=== PATIENT | male | born 1950 | race Caucasian/White ===

== ENCOUNTER 2017-10-19 08:45 | Emergency (ER) | payer MEDICARE ==
[~2017-10-19] VITALS: Ht 185.4 cm; Wt 86.2 kg
[2017-10-19] MEDS ORDERED: KETOROLAC TROMETHAMINE 30 MG/ML VIAL IV STA (09:06)
[2017-10-19 09:10] LABS: BASOPHILS % 0.1 % (0.0-1.0); EOSINOPHILS # (AUTO) 0.1 (0.0-0.4); EOSINOPHILS % 0.4 % (0.0-6.0); HEMATOCRIT 36.8 % (38.2-49.6); HEMOGLOBIN 13.3 g/dL (14.0-18.0); LYMPHOCYTES % 8.2 % (18.0-39.1); MEAN CORPUSCULAR HEMOGLOBIN 31.3 pg (28-32); MEAN CORPUSCULAR HGB CONC 36.1 g/dL (31-35); MEAN CORPUSCULAR VOLUME 86.6 fL (81-99); MONOCYTES # (AUTO) 1.2 (0.2-0.8); MONOCYTES % 9.7 % (4.4-11.3); NEUTROPHILS # (AUTO) 9.8 (2.1-6.9); NEUTROPHILS % 81.3 % (38.7-80.0); PLATELET COUNT 277 x10e3/uL (140-360); RED BLOOD COUNT 4.25 x10e6/uL (4.3-5.7); RED CELL DISTRIBUTION WIDTH 12.2 % (11.7-14.4)
[2017-10-19] MEDS ORDERED: SODIUM CHLORIDE 0.9% 1000ML 1,000 ML IV SCH (09:15)
[2017-10-19 09:30] LABS: B-TYPE NATRIURETIC PEPTIDE2 41.2 pg/mL (0-100)
[2017-10-19 09:32] LABS: INR 1.23; PROTHROMBIN TIME 14.6 seconds (11.9-14.5)
[2017-10-19 09:33] LABS: PARTIAL THROMBOPLASTIN TIME 31.7 seconds (23.8-35.5)
[2017-10-19 09:42] LABS: ALANINE AMINOTRANSFERASE 28 IU/L (0-55); ALBUMIN 3.5 g/dL (3.5-5.0); ALBUMIN/GLOBULIN RATIO 0.9 (0.8-2.0); ALKALINE PHOSPHATASE 89 IU/L (40-150); ANION GAP 15.7 mmol/L (8-16); BLOOD UREA NITROGEN 12 mg/dL (7-26); BUN/CREATININE RATIO 14 (6-25); CALCIUM 9.3 mg/dL (8.4-10.2); CARBON DIOXIDE 22 mmol/L (22-29); CHLORIDE 103 mmol/L (98-107); CREATINE KINASE 145 IU/L (30-200); CREATININE, SERUM 0.86 mg/dL (0.72-1.25); EST GLOMERULAR FILTRATION RATE > 60 ML/MIN (60-); GLUCOSE 113 mg/dL (74-118); POTASSIUM 3.7 mmol/L (3.5-5.1); SODIUM 137 mmol/L (136-145)
[2017-10-19] MEDS ORDERED: CEFTRIAXONE SOD 1 GM VIAL IV ONE (10:15)
--- NOTE | 2017-10-19 10:52 | Diagnostic Imaging Report ---
PROCEDURE: X-RAY CHEST, TWO VIEWS COMPARISON: None. INDICATIONS: COUGH, CHEST PAIN, VOMITING FINDINGS: LUNGS: No consolidations or edema. PLEURA: No effusions or pneumothorax. HEART \T\ MEDIASTINUM: The heart is within normal size-limits. BONES \T\ SOFT TISSUES: No acute findings. CONCLUSION: No acute thoracic abnormality. Keegan White D.O. Dictated by: Keegan White D.O. on 10/19/2017 at 9:36 Electronically approved by: Keegan White D.O. on 10/19/2017 at 9:36
== END 2017-10-19 11:29 | disposition home or self-care (01) ==
LOC: ER 08:45
DX: R06.00 Dyspnea, unspecified (principal); R51 Headache; R05 Cough; J01.00 Acute maxillary sinusitis, unspecified; I10 Essential (primary) hypertension; J45.909 Unspecified asthma, uncomplicated; I25.10 Atherosclerotic heart disease of native coronary artery without angina pectoris; E78.5 Hyperlipidemia, unspecified; Z95.5 Presence of coronary angioplasty implant and graft
CPT/HCPCS: 36415; 71046; 80053; 82550; 82553; 83605; 83880; 84484; 85025; 85610; 85730; 93005; 99284; J0696; J1885; J7030

== ENCOUNTER 2018-02-09 05:45 | Emergency (ER) | payer MEDICARE ==
[~2018-02-09] VITALS: Ht 185.4 cm; Wt 86.2 kg
--- OUTSIDE RECORDS SUMMARY | 2018-02-09 05:47 | XMS REPORT ---
Author Author [facility] Address Unknown Phone Unavailable Care Team Providers Care Resistor Inspector Name Role Phone Isma CORNELIUS Unavailable Unavailable Problems This patient has no known problems. Allergies, Adverse Reactions, Alerts This patient has no known allergies or adverse reactions. Medications This patient has no known medications. Results Test Description Test Time Test Comments Text Results Atomic Results Result Comments CHEST 2 VIEWS 2017-10-19 09:36:00 [facility] [address] [address] Patient Name: NORMA AVELAR MR #: [id number] : 1950 Age/Sex: 67/M Req #: [id number] Adm Physician: Ordered by: CLINTON CORNELIUS MD Report #: [id number] Location: ER Room/Bed: Procedure: [id number] DX/CHEST 2 VIEWS Exam Date: 10/19/17 Exam Time: 0900 REPORT STATUS: Signed PROCEDURE: X-RAY CHEST, TWO VIEWS COMPARISON: None. INDICATIONS: COUGH, CHEST PAIN, VOMITING FINDINGS: LUNGS: No consolidations or edema. PLEURA: No effusions or pneumothorax. HEART T MEDIASTINUM: The heart is within normal size-limits. BONES T SOFT TISSUES: No acute findings. CONCLUSION: No acute thoracic abnormality. Edwin Schneider D.O. Dictated by: Edwin Schneider D.O. on 10/19/2017 at 9:36 Electronically approved by: Edwin Schneider D.O. on 10/19/2017 at 9:36 Dictated By: EDWIN SCHNEIDER DO 5 Transcribed By: XI on 10/19/17935 COPY TO: CLINTON CORNELIUS MD
--- OUTSIDE RECORDS SUMMARY | 2018-02-09 05:48 | XMS REPORT ---
Author Organization Unknown Address [address] [place] [address] Phone [phone] Care Team Providers Care [employer] Police Name Role Phone Tee Moon Unavailable Unavailable Allergies Code Code System Name Reaction Severity Status Onset 465876 RxNorm Bactrim Active 07/15/2015 Medications Name Status Start Date Stop Date Advair Diskus 250 mcg-50 mcg/dose powder for inhalation Completed 07/06/2017 albuterol sulfate 2.5 mg/3 mL (0.083 %) solution for nebulization Inhale 3 mL as needed by nebulization route. Active Not available amoxicillin 500 mg capsule Completed 07/27/2016 amoxicillin 875 mg-potassium clavulanate 125 mg tablet Completed 01/13/2017 Aspir-81 1 tab QD Active Not available atorvastatin 80 mg tablet Active Not available azithromycin 250 mg tablet Completed 11/25/2016 benzonatate 150 mg capsule Completed 10/24/2016 Besivance 0.6 % eye drops,suspension Completed 11/25/2016 Breo Ellipta 200 mcg-25 mcg/dose powder for inhalation Inhale 1 puff every day by inhalation route for 90 days. Active Not available carvedilol 3.125 mg tablet Active Not available Cheratussin AC 10 mg-100 mg/5 mL oral liquid Take 5 mL every 6 hours by oral route as needed for 4 days. Completed 11/25/2016 clopidogrel 75 mg tablet Active Not available Depo-Medrol 80 mg/mL suspension for injection Take 1 mL every day by injection route. Completed 10/24/2016 Durezol 0.05 % eye drops Completed 11/25/2016 fluticasone 50 mcg/actuation nasal spray,suspension Completed 07/06/2017 hydrocodone 5 mg-acetaminophen 325 mg tablet Completed 07/27/2016 hydrocodone-homatropine 5 mg-1.5 mg/5 mL syrup Completed 07/27/2016 Ilevro 0.3 % eye drops,suspension Completed 11/25/2016 indomethacin 50 mg capsule Completed 10/24/2016 ipratropium-albuterol 0.5 mg-3 mg(2.5 mg base)/3 mL nebulization soln Completed 07/06/2017 ondansetron HCl 8 mg tablet Completed 01/13/2017 prednisone 20 mg tablet Completed 07/27/2016 prednisone 50 mg tablet Take 1 tablet by oral route for 5 days. Completed 07/11/2016 promethazine 25 mg/mL injection solution Take 25 mg by injection route. Completed 01/13/2017 Symbicort 160 mcg-4.5 mcg/actuation HFA aerosol inhaler TAKE 2 PUFFS BY MOUTH TWICE A DAY Completed 02/16/2017 Ventolin HFA 90 mcg/actuation aerosol inhaler Inhale 2 puffs every 4 hours by inhalation route as needed for 90 days. Active Not available Problems Name Status Onset Date Source Gastro-esophageal Reflux Disease with Esophagitis Active 09/14/2009 History Disorder of Male Genital Organ Active 09/14/2009 History Shoulder Joint Pain Active 09/14/2009 History Pain in Elbow Active 09/14/2009 History Lateral Epicondylitis Active 09/14/2009 History Malaise and Fatigue Active 09/14/2009 History Testicular Hypofunction Active 03/14/2014 History Pure Hypercholesterolemia Active 03/14/2014 History Ruptured Abdominal Aortic Aneurysm Unknown 07/03/2015 History Asthma Active 07/03/2015 History Acute Exacerbation of Asthma Unknown 07/03/2015 History Hypertensive Heart Disease Active 10/24/2016 History of Repair of Aneurysm of Abdominal Aorta Active 10/24/2016 Post Percutaneous Transluminal Coronary Angioplasty Active 10/24/2016 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 Procedures Date Name Performed by 01/07/2016 Angioplasty Information not available 04/03/2014 Shoulder Surgery Procedure Notes: right rotator cuff repair Information not available 05/10/2016 XR, Foot, 3 or More View Information not available 10/24/2016 Electrocardiogram Information not available 10/24/2016 XR, Chest, 2 View Information not available 01/13/2017 US, Scrotum [employer] [facility] [address] [place] [address] (Work Place) Lab Results Date Name Specimen Result Interpretation Description Value Range Status Address 10/24/2016 CBC W/ Auto Diff Wbc 8.24 x10*3/L 4.23-9.07 x10*3/L [facility] Laboratory: [address] [place] Rbc 4.78 10*12/L 4.63-6.08 10*12/L Final [facility] [address] [facility] [facility] Hemoglobin 15.00 g/dL 13.70-17.50 g/dL Final [facility] Laboratory: [address] [place] Hematocrit 44.2 % 40.1-51.0 % Final [facility] [address] [facility] Mcv 92.5 fL 80.0-100.0 fL Final [facility] [address] [facility] Mch 31.4 pg 25.7-32.2 pg Final [facility]: [address] [facility] [facility] Mchc 33.9 g/dL 32.3-36.5 g/dL Final [facility] [address] [facility] RDW-SD 42.2 fL 35.1-43.9 fL Final [facility] [address] [facility] [facility] Platelet Count 260.0 k/uL 163.0-337.0 k/uL Final [facility] [address] [facility] High Mpv 11.9 fL 7.5-11.5 fL Final [facility] [address] [facility] Neut% 67.3 % 34.0-67.9 % Final [facility]: [address] [facility] Low Lymph% 18.3 % 21.8-53.1 % Final [facility] [address] [facility] Mon% 9.3 % 5.3-12.2 % Final [facility] [address] [facility] Eos% 4.9 % 0.8-7.0 % Final [facility]: [address] [facility] Baso% 0.2 % 0.2-1.2 % Final [facility] [address] [facility] [facility] High Neut# 5.5 x10*3/L 1.8-5.4 x10*3/L Final [facility] [address] [facility] [facility] Lymph# 1.5 x10*3/L 1.3-3.6 x10*3/L Final [facility] Laboratory: [address] [facility] [place] Mon# 0.8 x10*3/L 0.3-0.8 x10*3/L Final [facility] Laboratory: [address] [place] Eos# 0.40 x10*3/L 0.04-0.54 x10*3/L Final [facility] Laboratory: [address] [place] [address] [place] Baso# 0.02 x10*3/L 0.01-0.08 x10*3/L Final [facility]: [address] [facility] 10/24/2016 CMP, Serum or Plasma Alt 26 U/L 0-55 U/L Final [facility] Laboratory: [address] Ast 23 U/L 5-34 U/L Final [facility] Laboratory: [address] Bun 10.3 mg/dL 8.4-25.7 mg/dL Final [facility] Laboratory: [address] Alk Phos 77 unit/L 40-150 unit/L Final [facility] Laboratory: [address] Glucose 96 mg/dL 70-99 mg/dL Final [facility] Laboratory: [address] Albumin 4.1 g/dL 3.5-5.0 g/dL Final [facility] Laboratory: [address] Creatinine 0.86 mg/dL 0.72-1.25 mg/dL Final [facility] Laboratory: [address] eGFR Non- >60 mL/min/1.73m2 >60 mL/min/1.73m2 Final [facility] Laboratory: [address] Total Bilirubin 0.7 mg/dL 0.2-1.2 mg/dL Final [facility] Laboratory: [address] eGFR - >60 mL/min/1.73m2 >60 mL/min/1.73m2 Final [facility] Laboratory: [address] Sodium 143 mEq/L 136-145 mEq/L Final [facility] Laboratory: [address] [place] [address], [place] Potassium 4.6 mEq/L 3.5-5.1 mEq/L Final [facility] Laboratory: [address] Chloride 106 mmol/L 98-107 mmol/L Final [facility] Laboratory: [address] [place] [address], [place] Total Protein 7.0 g/dL 6.4-8.3 g/dL Final [facility] Laboratory: [address] Calcium 9.7 mg/dL 8.8-10.0 mg/dL Final [facility] Laboratory: [address] Co2 24.3 mmol/L 23.0-31.0 mmol/L Final [facility] Laboratory: [address] Anion Gap 13 calc Final [facility] Laboratory: [address] [place] [address], [place] 10/24/2016 Lipid Panel, Serum Hdl 47 mg/dL 40-60 mg/dL Final [facility] Laboratory: [address] Triglyceride 114 mg/dL 0-149 mg/dL Final [facility] Laboratory: [address] VLDL Calc. 23 mg/dL Final [facility] Laboratory: [address] cholesterol/HDL Ratio 3 mg/dL Final [facility] Laboratory: [address] non-HDL Cholesterol Calc. 78 mg/dL 0-160 mg/dL Final [facility] Laboratory: [address] Cholesterol 125 mg/dL 0-199 mg/dL Final [facility] Laboratory: [address] LDL Calc. 55 mg/dL 0-130 mg/dL Final [facility] Laboratory: [address] [employer] [address] [facility] [place] 05/13/2016 CMP, Serum or Plasma Glucose, Serum 77 mg/dL 65-99 mg/dL Final [facility]: [address] Bun 12 mg/dL 8-27 mg/dL Final [facility]: [address] Creatinine, Serum 0.78 mg/dL 0.76-1.27 mg/dL Final [facility]: [address] eGFR If Nonafricn AM 95 mL/min/1.73 >59 mL/min/1.73 Final [facility]: [address] eGFR If Africn AM 110 mL/min/1.73 >59 mL/min/1.73 Final [facility]: [address] BUN/creatinine Ratio 15 10-22 Final [facility]: [address] Sodium, Serum 143 mmol/L 134-144 mmol/L Final [facility]: [address] Potassium, Serum 4.5 mmol/L 3.5-5.2 mmol/L Final [facility]: [address] Chloride, Serum 102 mmol/L 96-106 mmol/L Final [facility]: [address] Carbon Dioxide, Total 28 mmol/L 18-29 mmol/L Final [facility]: [address] Calcium, Serum 9.1 mg/dL 8.6-10.2 mg/dL Final [facility]: [address] Protein, Total, Serum 6.6 g/dL 6.0-8.5 g/dL Final [facility]: [address] Albumin, Serum 4.4 g/dL 3.6-4.8 g/dL Final [facility]: [address] Globulin, Total 2.2 g/dL 1.5-4.5 g/dL Final [facility]: [address] A/g Ratio 2.0 1.1-2.5 Final [facility]: [address] Bilirubin, Total 0.4 mg/dL 0.0-1.2 mg/dL Final [facility]: [address] Alkaline Phosphatase, S 97 IU/L 39-117 IU/L Final [facility]: [address] Ast (Sgot) 19 IU/L 0-40 IU/L Final [facility]: [address] Alt (Sgpt) 19 IU/L 0-44 IU/L Final [facility]: [address] 05/13/2016 Uric Acid, Serum or Plasma Uric Acid, Serum 5.7 mg/dL 3.7-8.6 mg/dL Final [facility]: [address], [place] Pulse Oximetry Pulse Ox [facility] [address] Past Encounters 07/06/2017 Asthma; Hypertensive Heart Disease JOE Marcos: [address] [place] [phone], Ph. 02/14/2017 Asthma; Hydrocele of Testis; Hypertensive Heart Disease; Post Percutaneous Transluminal Coronary Angioplasty Tee Moon MD: [address] [place] [phone], Ph. 01/13/2017 Swelling of Testicle Marcial Sanchez MD: [address] [place] [phone], Ph. 11/25/2016 Acute Bronchitis; Exacerbation of Asthma; Nausea Marcial Sanchez MD: [address] [place] [phone], Ph. 11/14/2016 Cough; Asthma; Acute Bronchitis BRITTNY Cao: [address] [place] [phone], Ph. 10/24/2016 Pre-surgery Evaluation; Hypertensive Heart Disease; Post Percutaneous Transluminal Coronary Angioplasty; Pure Hypercholesterolemia; Asthma Tee Moon MD: [address] [place] [phone], Ph. 07/27/2016 Acute Upper Respiratory Infection; Asthma JOE Aranda: [address] [place] [phone], Ph. 07/18/2016 Wheezing; Cough; Nausea BRITTNY Cao: [address] [place] [phone], Ph. 07/11/2016 Acute Upper Respiratory Infection BRITTNY Cao: [address] [place] [phone], Ph. 05/13/2016 Gouty Arthropathy JOE Aranda: [address] [facility], [facility] [address], [place] [address], Ph. 05/10/2016 Pain in Right Foot JOE Aranda: [address] [facility], [address], [place] [address], Ph. Social History Smoking Status Never Smoker Vaccine List Vaccine Type influenza, high dose seasonal 01/13/20170.5 mL influenza, seasonal, injectable 03/14/2014 Pneumococcal Conjugate, unspecified formulation 04/03/2012 Tdap 09/01/2009 Plan of Care Patient Instructions Schedule for AWV Increase PO fluids. Complete all antibiotics as prescribed. Call or RTC for worsening of symptoms or no improvement in 2-3 days. Increase PO fluids. Complete all antibiotics as prescribed. Call or RTC for worsening of symptoms or no improvement in 2-3 days. Reminders Provider Appointments None recorded. Lab None recorded. Referral None recorded. Procedures None recorded. Surgeries None recorded. Imaging None recorded. Vitals 07/06/2017 01:30PM Est Patient Height Weight BMI Blood Pressure 6 ft 0.3 in 181.9 lbs 24.5 kg/m2 (1) 149/83 mm[Hg] (2) 132/78 mm[Hg] 02/14/2017 02:45PM Est Patient Height Weight BMI Blood Pressure 6 ft 0.3 in 179 lbs 24.1 kg/m2 129/80 mm[Hg] 01/13/2017 08:30AM RIVETER/EST CPX Height Weight BMI Blood Pressure 6 ft 0.3 in 183 lbs 24.6 kg/m2 127/76 mm[Hg] 11/25/2016 09:15AM Est Patient Height Weight BMI Blood Pressure 6 ft 0.3 in 186 lbs 25 kg/m2 136/78 mm[Hg] 11/14/2016 10:15AM Work In Same Day Height Weight BMI Blood Pressure 6 ft 0.3 in 183 lbs 24.6 kg/m2 144/82 mm[Hg] 10/24/2016 02:30PM Est Patient Height Weight BMI Blood Pressure 6 ft 0.3 in 185.2 lbs 24.9 kg/m2 144/83 mm[Hg] 07/27/2016 01:45PM Est Patient Height Weight BMI Blood Pressure 6 ft 0.3 in 182.2 lbs 24.5 kg/m2 134/81 mm[Hg] 07/18/2016 10:30AM Est Patient Height Weight BMI Blood Pressure 6 ft 0.3 in 179.4 lbs 24.1 kg/m2 134/89 mm[Hg] 07/11/2016 01:45PM Work In Same Day Height Weight BMI Blood Pressure 6 ft 0.3 in 181.4 lbs 24.4 kg/m2 134/86 mm[Hg] 05/13/2016 09:15AM Est Patient Height Weight BMI Blood Pressure 6 ft 0.3 in 178 lbs 23.9 kg/m2 128/72 mm[Hg] 05/10/2016 10:15AM Work In Same Day Height Weight BMI Blood Pressure 6 ft 0.3 in 179 lbs 24.1 kg/m2 138/72 mm[Hg] 07/15/2015 Height Weight Blood Pressure 6 ft 0.3 in 184.6 lbs 134/75 mm[Hg] 07/15/2015 BMI 24.83 kg/m2 07/03/2015 Height Weight BMI Blood Pressure 6 ft 0.3 in 189 lbs 25.42 kg/m2 145/78 mm[Hg] 05/30/2014 Height Weight BMI Blood Pressure 6 ft 0.3 in 193 lbs 25.96 kg/m2 140/80 mm[Hg] 03/31/2014 Height Weight BMI Blood Pressure 6 ft 0.3 in 183 lbs 24.61 kg/m2 115/70 mm[Hg] 03/14/2014 Height Weight BMI Blood Pressure 6 ft 0.3 in 186.6 lbs 25.10 kg/m2 140/70 mm[Hg] 03/14/2013 Height Weight 6 ft 0.3 in 188.8 lbs 12/06/2012 Height Weight 6 ft 192.2 lbs 09/13/2012 Height Weight 6 ft 186.2 lbs 07/25/2012 Height Weight 6 ft 186.4 lbs 02/17/2012 Height Weight 6 ft 184.4 lbs 02/08/2012 Height Weight 6 ft 185.6 lbs 11/01/2011 Height Weight 6 ft 186 lbs 10/26/2011 Height Weight 6 ft 185.6 lbs 06/06/2011 Height Weight 6 ft 189 lbs 10/22/2009 Height Weight 6 ft 182.8 lbs 10/02/2009 Weight 188 lbs 09/23/2009 Height Weight 6 ft 0.5 in 185.8 lbs 09/14/2009 Height Weight 6 ft 0.5 in 186.4 lbs 01/22/2009 Weight 191 lbs 01/08/2009 Weight 187 lbs 09/25/2008 Height Weight 6 ft 0.5 in 189 lbs 10/12/2007 Weight 189.2 lbs 07/20/2006 Height Weight 6 ft 189.5 lbs 07/06/2006 Height Weight 6 ft 189.2 lbs 06/27/2006 Height Weight 6 ft 186.3 lbs 06/23/2006 Height Weight 6 ft 190.1 lbs 09/30/2005 Height Weight 6 ft 188 lbs 08/09/2005 Height Weight 6 ft 191 lbs 05/13/2005 Height Weight 6 ft 187 lbs 11/02/2004 Height Weight 6 ft 188 lbs 10/13/2004 Weight 188 lbs 10/13/2004 Height 6 ft
[2018-02-09] MEDS ORDERED: ACETAMINOPHEN 1000 MG/100 ML IV STA (05:57)
[2018-02-09] MEDS ORDERED: SODIUM CHLORIDE 0.9% 1000ML 1,000 ML IV ONE (06:00)
[2018-02-09 06:16] LABS: BASOPHILS % 0.3 % (0.0-1.0); EOSINOPHILS % 0.2 % (0.0-6.0); HEMATOCRIT 36.5 % (38.2-49.6); HEMOGLOBIN 12.6 g/dL (14.0-18.0); LYMPHOCYTES # (AUTO) 1.5 (1.0-3.2); LYMPHOCYTES % 14.3 % (18.0-39.1); MEAN CORPUSCULAR HEMOGLOBIN 30.6 pg (28-32); MEAN CORPUSCULAR HGB CONC 34.5 g/dL (31-35); MEAN CORPUSCULAR VOLUME 88.6 fL (81-99); NEUTROPHILS # (AUTO) 7.7 (2.1-6.9); NEUTROPHILS % 74.3 % (38.7-80.0); PLATELET COUNT 374 x10e3/uL (140-360); RED BLOOD COUNT 4.12 x10e6/uL (4.3-5.7); RED CELL DISTRIBUTION WIDTH 12.3 % (11.7-14.4)
[2018-02-09 06:23] LABS: CLARITY,URINE CLEAR (CLEAR); COLOR,URINE YELLOW (YELLOW); KETONES,URINE NEGATIVE (NEGATIVE); LEUKOCYTE ESTERASE ,URINE NEGATIVE (NEGATIVE); NITRITE,URINE NEGATIVE (NEGATIVE); PROTEIN,URINE DIPSTICK 1+ (NEGATIVE)
[2018-02-09 06:24] LABS: BILIRUBIN,URINE NEGATIVE (NEGATIVE); URINE UROBILINOGEN 0.2 mg/dL (0.2 - 1)
[2018-02-09 06:27] LABS: ALANINE AMINOTRANSFERASE 43 IU/L (0-55); ALBUMIN 3.1 g/dL (3.5-5.0); ALBUMIN/GLOBULIN RATIO 0.7 (0.8-2.0); ALKALINE PHOSPHATASE 79 IU/L (40-150); BLOOD UREA NITROGEN 10 mg/dL (7-26); BUN/CREATININE RATIO 11 (6-25); CALCIUM 9.4 mg/dL (8.4-10.2); CARBON DIOXIDE 23 mmol/L (22-29); CHLORIDE 100 mmol/L (98-107); CREATINE KINASE 101 IU/L (30-200); CREATININE, SERUM 0.88 mg/dL (0.72-1.25); EST GLOMERULAR FILTRATION RATE > 60 ML/MIN (60-); GLUCOSE 112 mg/dL (74-118); SODIUM 137 mmol/L (136-145)
[2018-02-09 06:35] LABS: STREPTOCOCCUS GRP A ANTIGEN POSITIVE (NEGATIVE)
[2018-02-09 06:36] LABS: BACTERIA,URINE FEW /HPF; EPITHELIAL CELLS,URINE RARE /LPF; MUCUS,URINE FEW (RARE); RBC,URINE 0-5 /HPF (0-5)
[2018-02-09 06:37] LABS: AMORPHOUS SEDIMENT,URINE FEW (FEW)
[2018-02-09 06:48] LABS: INFLUENZAE A&B ANTIGEN (RAPID) POSITIVE FLU A&B (NEGATIVE)
[2018-02-09 06:55] VITALS: BP 139/78
[2018-02-09] MEDS ORDERED: AUGMENTIN 875-1 EACH PO (06:55)
[2018-02-09] MEDS ORDERED: ZOFRAN ODT4 MG SL (06:59)
--- NOTE | 2018-02-09 07:45 | Diagnostic Imaging Report ---
EXAM: CHEST 2 VIEWS, PA and lateral DATE: 02/09/2018 5:51 AM Time stamp on exam: 6:36 AM INDICATION: Fever and cough COMPARISON: 10/19/2017 chest x-ray FINDINGS: LINES/TUBES: None LUNGS: No consolidations or edema. Biapical pleural thickening is stable. PLEURA: No effusions or pneumothorax. HEART AND MEDIASTINUM: Normal size and contour. BONES AND SOFT TISSUES: No acute findings. IMPRESSION: No acute thoracic abnormality. Signed by: Dr. Keegan White DO on 02/09/2018 7:42 AM
== END 2018-02-09 07:06 | disposition home or self-care (01) ==
LOC: ER 05:45
DX: R50.9 Fever, unspecified (principal); R05 Cough; J11.1 Influenza due to unidentified influenza virus with other respiratory manifestations; J02.0 Streptococcal pharyngitis
CPT/HCPCS: 36415; 71046; 80053; 81001; 82550; 82553; 83518; 83605; 84484; 85025; 86308; 87040; 87086; 87400; 96365; 99284; J0131; J7030

== ENCOUNTER → 2020-09-15 | Day surgery (SDC) | payer MEDICARE ==
[2020-09-10 11:25] LABS: BASOPHILS % 0.3 % (0.0-1.0); EOSINOPHILS # (AUTO) 0.4 (0.0-0.4); EOSINOPHILS % 4.9 % (0.0-6.0); HEMATOCRIT 44.3 % (38.2-49.6); HEMOGLOBIN 14.8 g/dL (14.0-18.0); LYMPHOCYTES # (AUTO) 1.6 (1.0-3.2); LYMPHOCYTES % 18.1 % (18.0-39.1); MEAN CORPUSCULAR HEMOGLOBIN 30.8 pg (28-32); MEAN CORPUSCULAR HGB CONC 33.4 g/dL (31-35); MEAN CORPUSCULAR VOLUME 92.1 fL (81-99); MONOCYTES # (AUTO) 0.8 (0.2-0.8); MONOCYTES % 8.7 % (4.4-11.3); NEUTROPHILS % 67.7 % (38.7-80.0); PLATELET COUNT 243 x10e3/uL (140-360); RED BLOOD COUNT 4.81 x10e6/uL (4.3-5.7); RED CELL DISTRIBUTION WIDTH 12.3 % (11.7-14.4)
[~2020-09-15] MED LIST: ASPIRIN81 MG PO; AUGMENTIN 875-1 EACH PO; BREO ELLIPTA 21 EACH INH; CARVEDILOL3.125 MG PO; CRESTOR10 MG PO; FENTANYL CITRATE/PF 100MCG/2 ML INJ ONE; KETAMINE HCL INJ 50 MG/ML 10 ML VIAL ONE; MIDAZOLAM HCL 2 MG/2 ML VIAL ONE; PROPOFOL IV EMULSION 10 MG/ML 20 ML VIAL ONE; ZOFRAN ODT4 MG SL
[2020-09-15 13:49] VITALS: BP 121/76
== END | disposition home or self-care (01) ==
LOC: OR 10:48
PROVIDERS: ATTEND Internal Medicine Gastroenterology
DX: Z12.11 Encounter for screening for malignant neoplasm of colon (principal); D12.3 Benign neoplasm of transverse colon; K57.30 Diverticulosis of large intestine without perforation or abscess without bleeding; K64.8 Other hemorrhoids; J44.9 Chronic obstructive pulmonary disease, unspecified; I25.10 Atherosclerotic heart disease of native coronary artery without angina pectoris; I10 Essential (primary) hypertension; E78.5 Hyperlipidemia, unspecified; I83.90 Asymptomatic varicose veins of unspecified lower extremity; Z88.6 Allergy status to analgesic agent; Z88.1 Allergy status to other antibiotic agents; Z88.2 Allergy status to sulfonamides; Z88.4 Allergy status to anesthetic agent; Z01.812 Encounter for preprocedural laboratory examination; Z79.82 Long term (current) use of aspirin; Z87.01 Personal history of pneumonia (recurrent); Z80.0 Family history of malignant neoplasm of digestive organs
CPT/HCPCS: 36415; 45385; 85025; 88305; J2704; 45378